=== PATIENT | male | born 1955 | race Caucasian/White ===

== ENCOUNTER 2024-01-05 08:08 | Emergency (ER) | payer OTHER, MEDICARE ==
[2024-01-05] MEDS: Ibuprofen 600 MG Tab PO ONE (08:54)
== END 2024-01-05 09:02 | disposition home or self-care (01) ==
LOC: KA.ED 08:08
DX: S42.021A Displaced fracture of shaft of right clavicle, initial encounter for closed fracture (principal); Z79.899 Other long term (current) drug therapy; W18.39XA Other fall on same level, initial encounter; Y93.89 Activity, other specified
CPT/HCPCS: 73000-RT; 73030-RT; 99283; A9270-GY